=== PATIENT | male | born 1985 | race Caucasian/White ===

== ENCOUNTER 2018-08-22 12:07 | Emergency (ER) | payer SELFPAY ==
[2018-08-22 12:11] VITALS: RESP 18
[2018-08-22] MEDS ORDERED: RX INFO: IV CONTRAST WAS GIVEN 1 EACH MISC MISCELLANE PRN (13:01)
[2018-08-22 13:35] LABS: Basophils % (A) 1 %; Eosinophils # (A) 0.1 k/uL (0-0.7); Eosinophils % (A) 2 %; HCT 45.9 % (39.0-53.0); HGB 15.6 gm/dL (13.0-17.5); Lymphocytes % (A) 14 %; MCH 31.5 pg (25.0-35.0); MCV 92.7 fL (80.0-100.0); Mean Platelet Volume 7.6; Monocytes # (A) 0.4 k/uL (0-1.0); Monocytes % (A) 6 %; Neutrophils # (A) 5.2 k/uL (1.3-7.7); Neutrophils % (A) 76 %; Platelet Count 214 k/uL (150-450); RBC 4.95 m/uL (4.30-5.90); RDW 13.9 % (11.5-15.5); WBC 6.8 k/uL (3.8-10.6)
[2018-08-22 13:43] LABS: ALT 26 U/L (21-72); AST 25 U/L (17-59); Albumin 4.4 g/dL (3.5-5.0); Alkaline Phosphatase 53 U/L (38-126); Anion Gap 7 mmol/L; Blood Urea Nitrogen 20 mg/dL (9-20); Calcium 9.3 mg/dL (8.4-10.2); Carbon Dioxide 29 mmol/L (22-30); Chloride 103 mmol/L (98-107); Glucose 90 mg/dL (74-99); Potassium 4.3 mmol/L (3.5-5.1); Sodium 139 mmol/L (137-145); Total Protein 7.1 g/dL (6.3-8.2)
[2018-08-22 14:08] VITALS: TEMP 97.9
--- NOTE | 2018-08-22 14:33 | CT ---
EXAMINATION TYPE: CT chest w con DATE OF EXAM: 08/22/2018 COMPARISON: HISTORY: Left sided chest and back pain with difficulty breathing CT DLP: 305 mGycm Automated exposure control for dose reduction was used. CONTRAST: CT scan of the chest is performed with IV Contrast, patient injected with 100 mL of Isovue 300. FINDINGS: LUNGS: The lungs are grossly clear, there is no concerning parenchymal mass or nodule identified. T here is no pleural effusion or pneumothorax seen. The tracheobronchial tree is patent. MEDIASTINUM: There are no greater than 1 cm hilar or mediastinal lymph nodes. No pericardial effusi on is seen. AORTA: No additional significant abnormality is seen. OTHER: No additional significant abnormality is seen. IMPRESSION: Normal chest CT
--- NOTE | 2018-08-22 15:01 | ED ---
General Adult HPI - General Chief complaint: Back Pain/Injury Stated complaint: left rib pain Time Seen by Provider: 08/22/18 12:13 Source: patient Mode of arrival: ambulatory Limitations: no limitations - History of Present Illness Initial comments: 32-year-old male who denies past medical history presents today for multiple complaints. Patient states she has had pain in the left rib he can point to the spot that specifically hurts she states it hurts with all ranges of motion. He states he does do marlee and he thinks about 2-3 weeks ago he twisted wrong states, its positional and only is present if he moves/or touches are. It is sharp. He also notes for month > 3 he has had a soft painless mass in the left axillary region pt is concerned that he has cancer. Pt states if he take a deep breath it hurts in the same place where he touches. He denies shortness of breath or chest pain, leg swelling, hemoptysis, history of cancer, recent surge ry, recent immobilization, UE parathesias, jaw pain. he denies fever, chill, night sweats or weight loss. He denies injury or falls. He denies known direct trauma. Remaining ROS (-). Upon arrival pt appears well there is no acute distress. - Related Data Home Medications Medication Instructions Recorded Confirmed No Known Home Medications 08/22/18 08/22/18 Allergies Allergy/AdvReac Type Severity Reaction Status Date / Time No Known Allergies Allergy Verified 08/22/18 12:21 Review of Systems ROS Statement: Those systems with pertinent positive or pertinent negative responses have been documented in the HPI. ROS Other: All systems not noted in ROS Statement are negative. Past Medical History Past Medical History: No Reported History History of Any Multi-Drug Resistant Organisms: None Reported Past Surgical History: Orthopedic Surgery Past Psychological History: No Psychological Hx Reported Smoking Status: Current every day smoker Past Alcohol Use History: Occasional Past Drug Use History: None Reported General Exam - General Exam Comments Initial Comments: General: The patient is awake and alert, in no distress, and does not appear acutely ill. Eye: +3 mm pupils are equal, round and reactive to light, extra-ocular movements are intact. No nystagmus. There is normal conjunctiva bilaterally. No signs of icterus. Ears, nose, mouth and throat: There are moist mucous membranes and no oral lesions. Neck: The neck is supple, there is no tenderness or JVD. Cardiovascular: There is a regular rate and rhythm. No murmur, rub or gallop is appreciated. Respiratory: Lungs are clear to auscultation, respirations are non-labored, breath sounds are equal. No wheezes, stridor, rales, or rhonchi. Gastrointestinal: Soft, non-distended, non-tender abdomen without masses or organomegaly noted. There is no rebound or guarding present. No CVA tenderness. Bowel sounds are unremarkable. Musculoskeletal: Left midclavicular lower rib margin there is point tenderness no mass or lesions. Normal ROM, no tenderness. Strength 5/5. Sensation intact. Radial or DP pulses equal bilaterally 2+. Neurological: A&O x 3. CN II-XII intact, There are no obvious motor or sensory deficits. Coordination appears grossly intact. Speech is normal. Skin: Skin is warm and dry and no rashes or lesions are noted. No LE edema, (-) Homans. 3cmx 3cm mass of the left axilla, partially mobile, nonerythematous and nontender. Psychiatric: Cooperative, appropriate mood & affect, normal judgment. Limitations: no limitations Course Vital Signs 08/22/18 08/22/18 08/22/18 12:09 14:07 15:20 Temperature 98.0 F 97.9 F Pulse Rate 77 62 63 Respiratory 18 18 18 Rate Blood Pressure 137/81 139/84 150/85 O2 Sat by Pulse 98 98 98 Oximetry Medical Decision Making - Medical Decision Making Very well-appearing 32-year-old male presenting today for chief complaint of mass in the left armpit 3 months to 3 months of left lower rib pain. Patient is able to localize the tenderness specifically he states increases in that particular location with deep inspiration. Patient is concerned he had cancer presented for evaluation. Upon arrival examination revealed a mass in the left axilla recently of breath or similar. This was soft and did not appear infectious. Frontal diagnosis includes lipoma, lymphadenopathy. Or other soft tissue mass. In addition patient had point tenderness of the ribs there is no mass located at this area. CT of the chest was obtained revealing no acute abnormalities. Patient denied any shortness of breath he states it only hurts in the area of the left lower rib with a deep breath. He denies history of DVT or PE, he denies unilateral leg swelling he denies hot 49 denies recent surgery or trauma. He denies hormone use. Patient PERC negative. Pt denies any chest pressure I do not feel given how positional and reproducible pain is on exam and point localized that this is ACS. Patient does roof and lift heavy objects different diagnosis includes rib contusion or strain intercostal muscle. At this time feel patient stable for discharge with general surgery follow-up. Patient is agreeable care plan as well as discharge. Did discuss the case obtained by Dr. Manzanares who is agreeable plan as well. Return parameters were discussed at length the patient who verbalizes understanding. Patient instructed to take ibuprofen and Tylenol - Lab Data Result diagrams: 08/22/18 13:21 08/22/18 13:21 Lab Results 08/22/18 08/22/18 Range/Units 13:21 13:21 WBC 6.8 (3.8-10.6) k/uL RBC 4.95 (4.30-5.90) m/uL Hgb 15.6 (13.0-17.5) gm/dL Hct 45.9 (39.0-53.0) % MCV 92.7 (80.0-100.0) fL MCH 31.5 (25.0-35.0) pg MCHC 34.0 (31.0-37.0) g/dL RDW 13.9 (11.5-15.5) % Plt Count 214 (150-450) k/uL Neutrophils % 76 % Lymphocytes % 14 % Monocytes % 6 % Eosinophils % 2 % Basophils % 1 % Neutrophils # 5.2 (1.3-7.7) k/uL Lymphocytes # 1.0 (1.0-4.8) k/uL Monocytes # 0.4 (0-1.0) k/uL Eosinophils # 0.1 (0-0.7) k/uL Basophils # 0.0 (0-0.2) k/uL Sodium 139 (137-145) mmol/L Potassium 4.3 (3.5-5.1) mmol/L Chloride 103 (98-107) mmol/L Carbon Dioxide 29 (22-30) mmol/L Anion Gap 7 mmol/L BUN 20 (9-20) mg/dL Creatinine 0.95 (0.66-1.25) mg/dL Est GFR (CKD-EPI)AfAm >90 (>60 ml/min/1.73 sqM) Est GFR (CKD-EPI)NonAf >90 (>60 ml/min/1.73 sqM) Glucose 90 (74-99) mg/dL Calcium 9.3 (8.4-10.2) mg/dL Total Bilirubin 1.0 (0.2-1.3) mg/dL AST 25 (17-59) U/L ALT 26 (21-72) U/L Alkaline Phosphatase 53 (38-126) U/L Total Protein 7.1 (6.3-8.2) g/dL Albumin 4.4 (3.5-5.0) g/dL Disposition Clinical Impression: Soft tissue mass, Axillary mass, Rib pain on left side Disposition: HOME SELF-CARE Condition: Good Instructions (If sedation given, give patient instructions): Rib Contusion ( ED), Soft Tissue Mass (ED) Additional Instructions: Please use medication as discussed. Please follow-up with family doctor in the next 2 days, please follow-up with general surgery as discussed. Please return to emergency room if the symptoms increase or worsen or for any other concerns. Is patient prescribed a controlled substance at d/c from ED?: No Referrals: None,Stated [Primary Care Provider] - 1-2 days Rebel Mascorro MD [STAFF PHYSICIAN] - [facility] - 1-2 days Time of Disposition: 15:01
[2018-08-22 15:29] VITALS: BP 150/85; PULSE 63
== END 2018-08-22 15:20 | disposition home or self-care (01) ==
LOC: EC 12:07
DX: R07.81 Pleurodynia (principal); R22.32 Localized swelling, mass and lump, left upper limb; F17.200 Nicotine dependence, unspecified, uncomplicated
CPT/HCPCS: 36415; 80053; 85025; 71260; 99284; Q9967

== ENCOUNTER 2022-01-30 20:51 | Emergency (ER) | payer OTHER ==
[2022-01-30 21:40] VITALS: BP 156/64; PULSE 74; RESP 16; TEMP 98
--- NOTE | 2022-01-30 21:58 | XR ---
EXAMINATION TYPE: XR hand complete LT DATE OF EXAM: 01/30/2022 COMPARISON: NONE HISTORY: Pain TECHNIQUE: 3 view FINDINGS: Metacarpals are intact. Fingers appear intact. I see no fracture nor dislocation. IMPRESSION: Negative left hand exam. No fracture.
--- NOTE | 2022-01-30 21:58 | XR ---
EXAMINATION TYPE: XR wrist complete LT DATE OF EXAM: 01/30/2022 COMPARISON: NONE HISTORY: Pain TECHNIQUE: 4 views FINDINGS: Carpal bones are intact. Radiocarpal joint appears normal. There is no evidence of fracture nor dislocation. The metacarpals are intact. IMPRESSION: Negative left wrist exam. No fracture.
--- NOTE | 2022-01-30 22:03 | ED ---
Upper Extremity HPI - General Chief Complaint: Extremity Injury, Upper Stated Complaint: Armm Injury Time Seen by Provider: 01/30/22 22:02 Source: patient, RN notes reviewed, old records reviewed Mode of arrival: ambulatory Limitations: no limitations - History of Present Illness Initial Comments: 36-year-old male presents ambulatory with complaints of left arm and hand pain after a nail gun fell 20 feet onto his arm this morning around 11:00. Patient states throughout the day it has become increasingly painful and more swollen. Denies any other injuries. States his tetanus shot is up-to-date. MD Complaint: Injury to:: left, arm, wrist, hand -: hour(s) (12) Other Injuries: none Place: work Severity scale (1-10): 3 Improves With: immobilization Worsens With: movement of extremity Context: direct blow (Nail gun fell 20 feet landing on arm) Associated Symptoms: denies other symptoms - Related Data Previous Rx's Medication Instructions Recorded Cephalexin [Keflex] 500 mg PO Q6HR 5 Days #20 cap 01/30/22 Allergies Allergy/AdvReac Type Severity Reaction Status Date / Time No Known Allergies Allergy Verified 08/22/18 12:21 Review of Systems ROS Statement: Those systems with pertinent positive or pertinent negative responses have been documented in the HPI. ROS Other: All systems not noted in ROS Statement are negative. Past Medical History Past Medical History: No Reported History History of Any Multi-Drug Resistant Organisms: None Reported Past Surgical History: Orthopedic Surgery Past Psychological History: No Psychological Hx Reported Smoking Status: Current every day smoker Past Alcohol Use History: Occasional Past Drug Use History: None Reported General Exam Limitations: no limitations General appearance: alert, in no apparent distress Head exam: Present: atraumatic Respiratory exam: Absent: respiratory distress, accessory muscle use Cardiovascular Exam: Present: regular rate Left Elbow exam: Absent: tenderness Forearm Wrist exam: Present: full ROM, tenderness, swelling, abrasion (forarm ) Hand Wrist exam: Present: full ROM, tenderness, swelling, abrasion (abrasions to mid dorsum ) Neuro motor exam: Present: wrist extension intact Neurosensory exam: Present: radial nerve intact, ulnar nerve intact, median nerve intact Vascular: Present: normal capillary refill. Absent: vascular compromise Neurological exam: Present: alert, oriented X3, normal gait Psychiatric exam: Present: normal affect, normal mood Skin exam: Present: warm, dry, normal color. Absent: cyanosis, diaphoretic Course Vital Signs 01/30/22 21:37 Temperature 98 F Pulse Rate 74 Respiratory 16 Rate Blood Pressure 156/64 O2 Sat by Pulse 98 Oximetry Medical Decision Making - Medical Decision Making X-rays of the left wrist, left hand and left forearm show no evidence of fracture or dislocation. He does have good range of motion although limited due to swelling. He was offered pain medication and declined. States tetanus shot is up-to-date. Patient was given Keflex due to multiple abrasions to left hand prophylactically. He was directed to follow-up with orthopedics or his primary care doctor within the next 3 days for reevaluation. Return to the emergency room if any new or concerning symptoms including increased pain, numbness, tingling or pallor. He is agreeable to this plan of care. Discussed with Dr. Botello Disposition Clinical Impression: Hand injury, Forearm injury Disposition: HOME SELF-CARE Instructions (If sedation given, give patient instructions): Wrist Injury (ED) Prescriptions: Cephalexin [Keflex] 500 mg PO Q6HR 5 Days #20 cap Is patient prescribed a controlled substance at d/c from ED?: No Referrals: None,Stated [Primary Care Provider] - 1-2 days Dann Figueroa MD [Medical Doctor] - 1-2 days Time of Disposition: 22:48
[2022-01-30] MEDS ORDERED: BACITRACIN OINT 1 EACH PACKET TOPICAL ONE (22:10)
[2022-01-30] MEDS ORDERED: CEPHALEXIN 500 MG CAP PO STA (22:35)
--- NOTE | 2022-01-30 22:48 | XR ---
EXAMINATION TYPE: XR forearm LT DATE OF EXAM: 01/30/2022 COMPARISON: NONE HISTORY: Swelling TECHNIQUE: 2 views FINDINGS: Radius and ulna appear intact. Elbow joint and wrist joint appear intact. I see no fracture . IMPRESSION: Negative left forearm exam.
== END 2022-01-30 23:16 | disposition home or self-care (01) ==
LOC: EC 20:51
DX: S69.92XA Unspecified injury of left wrist, hand and finger(s), initial encounter (principal); S60.812A Abrasion of left wrist, initial encounter; S50.812A Abrasion of left forearm, initial encounter; S59.912A Unspecified injury of left forearm, initial encounter; F17.200 Nicotine dependence, unspecified, uncomplicated; W20.8XXA Other cause of strike by thrown, projected or falling object, initial encounter
CPT/HCPCS: 99283

== ENCOUNTER 2024-03-27 13:21 | Emergency (ER) | payer OTHER ==
[2024-03-27 13:44] VITALS: RESP 18
[2024-03-27] MEDS: KETOROLAC 15 MG/ML 1 ML VIAL IM STA (14:15)
[2024-03-27] MEDS: MORPHINE SULFATE 4 MG/ML SYRINGE IM STA (14:16)
--- NOTE | 2024-03-27 14:40 | ED ---
General Adult HPI - General Chief complaint: Back Pain/Injury Stated complaint: Fall/Back Pain Time Seen by Provider: 03/27/24 14:05 Source: patient, RN notes reviewed, old records reviewed Mode of arrival: ambulatory Limitations: no limitations - History of Present Illness Initial comments: 38-year-old male presents with right-sided back pain after fall which occurred yesterday while carrying a window at work. Patient fell backward striking the right side low back. He has had pain at the area despite [id number] medication. No hematuria. He does have some shooting pain into the leg without weakness. No bowel or bladder incontinence. - Related Data Previous Rx's Medication Instructions Recorded Cephalexin [Keflex] 500 mg PO Q6HR 5 Days #20 cap 01/30/22 Ibuprofen [Motrin] 600 mg PO Q8HR PRN #24 tab 03/27/24 Allergies Allergy/AdvReac Type Severity Reaction Status Date / Time No Known Allergies Allergy Verified 08/22/18 12:21 Review of Systems ROS Statement: Those systems with pertinent positive or pertinent negative responses have been documented in the HPI. ROS Other: All systems not noted in ROS Statement are negative. Past Medical History Past Medical History: No Reported History History of Any Multi-Drug Resistant Organisms: None Reported Past Surgical History: Orthopedic Surgery Past Psychological History: No Psychological Hx Reported Smoking Status: Current every day smoker Past Alcohol Use History: Occasional Past Drug Use History: None Reported General Exam Limitations: no limitations General appearance: alert, in no apparent distress Head exam: Present: atraumatic, normocephalic Eye exam: Present: normal appearance, PERRL ENT exam: Present: normal exam Neck exam: Present: normal inspection Respiratory exam: Present: normal lung sounds bilaterally. Absent: respiratory distress, wheezes Cardiovascular Exam: Present: regular rate, normal rhythm GI/Abdominal exam: Present: soft. Absent: distended, tenderness, guarding Back exam: Present: paraspinal tenderness. Absent: vertebral tenderness Neurological exam: Present: alert, oriented X3, CN II-XII intact, other (5 out of 5 strength in the lower extremities). Absent: motor sensory deficit Psychiatric exam: Present: normal affect, normal mood Skin exam: Present: warm, dry, intact, other (No ecchymosis or abrasion to the right paraspinal back or flank.) Course Vital Signs 03/27/24 13:41 Temperature 97.8 F Pulse Rate 61 Respiratory 18 Rate Blood Pressure 156/70 O2 Sat by Pulse 99 Oximetry Medical Decision Making - Medical Decision Making Was pt. sent in by a medical professional or institution ([employer], [employer], urgent care, hospital, or skilled nursing...) When possible be specific @ -No Did you speak to anyone other than the patient for history (EMS, parent, family, police, friend...)? What history was obtained from this source @ -No Did you review nursing and triage notes (agree or disagree)? Why? @ -I reviewed and agree with nursing and triage notes Were old charts reviewed (outside hosp., previous admission, EMS record, old EKG, old radiological studies, urgent care reports/EKG's, skilled nursing records)? Report findings @ -No old charts were reviewed Differential Musculoskeletal Muscular strain, contusion, ligament sprain, fracture, arthritis, septic arthritis, bursitis, cellulitis, muscle spasm, nerve compression, DVT, arterial occlusion, herpes zoster, electrolyte abnormality, tumor.... This is not meant to be in all inclusive list EKG interpreted by me (3pts min.). @ -As above X-rays interpreted by me (1pt min.). @X-ray of the lumbar spine negative for displaced fracture or dislocation CT interpreted by me (1pt min.). @ -None done U/S interpreted by me (1pt. min.). @ -None done What testing was considered but not performed or refused? (CT, X-rays, U/S, labs)? Why? @ -None What meds were considered but not given or refused? Why? @ -None Did you discuss the management of the patient with other professionals (professionals i.e. [employer], [employer] TABLE [employer]SEM[employer], lab, RT, psych nurse, social worker aide, imaging technician, teacher, jailer/training officer, ed case manager)? Give summary @ -No Was smoking cessation discussed for >3mins.? @ -No Was critical care preformed (if so, how long)? @ -No Were there social determinants of health that impacted care today? How? (Homelessness, low income, unemployed, alcoholism, drug addiction, transportation, low edu. Level, literacy, decrease access to med. care, residential, rehab)? @ -No Was there de-escalation of care discussed even if they declined (Discuss DNR or withdrawal of care, Hospice)? DNR status @ -No What co-morbidities impacted this encounter? (DM, HTN, Smoking, COPD, CAD, Cancer, CVA, ARF, Chemo, Hep., AIDS, mental health diagnosis, sleep apnea, morbid obesity)? @ -None Was patient admitted / discharged? Hospital course, mention meds given and route, prescriptions, significant lab abnormalities, going to OR and other pertinent info. @ -38-year-old male with right low back contusion, no fracture evident on x- ray. Patient will ice the area, take Motrin for pain. Undiagnosed new problem with uncertain prognosis? @ -No Drug Therapy requiring intensive monitoring for toxicity (Heparin, Nitro, Insulin, Cardizem)? @ -No Were any procedures done? @ -No Diagnosis/symptom? @ -Low back strain, contusion Acute, or Chronic, or Acute on Chronic? @ -acute Uncomplicated (without systemic symptoms) or Complicated (systemic symptoms)? @ -Default Side effects of treatment? @ -No Exacerbation, Progression, or Severe Exacerbation? @ -No Poses a threat to life or bodily function? How? (Chest pain, [place], MA, pneumonia, PE, COPD, DKA, ARF, appy, cholecystitis, CVA, Diverticulitis, Homicidal, Suicidal, threat to staff... and all critical care pts) @ -No Disposition Clinical Impression: Strain of lumbar region Disposition: HOME SELF-CARE Condition: Fair Instructions (If sedation given, give patient instructions): Acute Low Back Pain (ED) Prescriptions: Ibuprofen [Motrin] 600 mg PO Q8HR PRN #24 tab PRN Reason: Pain Referrals: None,Stated [Primary Care Provider] - 1-2 days Javier Castañeda DO [REFERRING] - 1-2 days Time of Disposition: 15:06
--- NOTE | 2024-03-27 15:10 | XR ---
EXAMINATION TYPE: XR lumbar spine 2 or 3V DATE OF EXAM: 03/27/2024 2:49 PM COMPARISON: None CLINICAL INDICATION: Male, 38 years old with history of fall/pain; PHH, pain TECHNIQUE: XR lumbar spine 2 or 3V - Frontal, lateral and coned in L5-S1 lateral views of the spine. FINDINGS: No evidence of any acute osseous pathology. No evidence of loss of vertebral body height i s seen. There is normal alignment of the lumbar vertebral bodies. Scattered disc space narrowing. Mul tilevel marginal osteophyte formation throughout the visualized spine. There is facet joint arthropat hy throughout the spine worse at L5-S1. Scattered at least mild neural foraminal stenosis at L5-S1. IMPRESSION: 1. No acute fracture. 2. Mild multilevel disc degeneration. [facility], Workstation: [facility], 03/27/2024 3:08 PM
[2024-03-27 15:20] VITALS: BP 140/76; PULSE 66; TEMP 98
== END 2024-03-27 15:20 | disposition home or self-care (01) ==
LOC: EC 13:21
DX: S39.012A Strain of muscle, fascia and tendon of lower back, initial encounter (principal); F17.200 Nicotine dependence, unspecified, uncomplicated; W19.XXXA Unspecified fall, initial encounter; Y99.0 Civilian activity done for income or pay
CPT/HCPCS: 72100; 99283; 96372 ×2; J2270; J1885